=== PATIENT | female | born 2000 | race Caucasian/White ===

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

== ENCOUNTER 2021-01-18 21:57 | Emergency (ER) | payer OTHER ==
[~2021-01-18] VITALS: Ht 165.1 cm; Wt 100.0 kg
[~2021-01-18 21:57] MED LIST changes: +ONDA4TAB6 PO
--- OUTSIDE RECORDS SUMMARY | 2021-01-18 23:27 | CCD ---
Author Author [facility] Organization [facility] Address Unknown Phone Unavailable Care Team Providers Care Assistant Printer Floor Covering Name Role Phone Juanita ESPITIA NP Unavailable Unavailable LAROCKJuanita NP Unavailable Unavailable LAROCKJaunita NP Unavailable Unavailable LAROCKJuanita NP Unavailable Unavailable [...] LAROCKJuanita NP Unavailable Unavailable LAROCK, J ANEESH HEATING UNIT MECHANIC Unavailable Unavailable LAROCK, J ANEESH HEATING UNIT MECHANIC Unavailable Unavailable Dille, E Ginny DDS Unavailable Unavailable Dille, E Ginny DDS Unavailable Unavailable Dille, E Ginny DDS Unavailable Unavailable Dille, E Ginny DDS Unavailable Unavailable De Los Santos, L Alysia HEATING UNIT MECHANIC Unavailable Unavailable De Los Santos, L Alysia HEATING UNIT MECHANIC Unavailable Unavailable De Los Santos, L Alysia HEATING UNIT MECHANIC Unavailable Unavailable De Los Santos, L Alysia HEATING UNIT MECHANIC Unavailable Unavailable De Los Santos, L Alysia HEATING UNIT MECHANIC Unavailable Unavailable De Los Santos, L Alysia HEATING UNIT MECHANIC Unavailable Unavailable De Los Santos, L Alysia HEATING UNIT MECHANIC Unavailable Unavailable De Los Santos, L Alysia HEATING UNIT MECHANIC Unavailable Unavailable De Los Santos, L Alysia HEATING UNIT MECHANIC Unavailable Unavailable De Los Santos, L Alysia HEATING UNIT MECHANIC Unavailable Unavailable De Los Santos, L Alysia HEATING UNIT MECHANIC Unavailable Unavailable De Los Santos, L Alysia HEATING UNIT MECHANIC Unavailable Unavailable De Los Santos, L Alysia HEATING UNIT MECHANIC Unavailable Unavailable De Los Santos, L Alysia HEATING UNIT MECHANIC Unavailable Unavailable De Los Santos, L Alysia HEATING UNIT MECHANIC Unavailable Unavailable De Los Santos, L Alysia HEATING UNIT MECHANIC Unavailable Unavailable De Los Santos, L Alysia HEATING UNIT MECHANIC Unavailable Unavailable De Los Santos, L Alysia HEATING UNIT MECHANIC Unavailable Unavailable De Los Santos, L Alsyia HEATING UNIT MECHANIC Unavailable Unavailable De Los Santos, L Alysia HEATING UNIT MECHANIC Unavailable Unavailable De Los Santos, L Alysia HEATING UNIT MECHANIC Unavailable Unavailable De Los Santos, L Alysia HEATING UNIT MECHANIC Unavailable Unavailable De Los Santos, L Alysia HEATING UNIT MECHANIC Unavailable Unavailable De Los Santos, L Alysia HEATING UNIT MECHANIC Unavailable Unavailable De Los Santos, L Alysia HEATING UNIT MECHANIC Unavailable Unavailable De Los Santos, L Alysia HEATING UNIT MECHANIC Unavailable Unavailable De Los Santos, L Alysia HEATING UNIT MECHANIC Unavailable Unavailable De Los Santos, L Alysia HEATING UNIT MECHANIC Unavailable Unavailable De Los Santos, L Alysia HEATING UNIT MECHANIC Unavailable Unavailable De Los Santos, L Alysia HEATING UNIT MECHANIC Unavailable Unavailable De Los Santos, L Alysia HEATING UNIT MECHANIC Unavailable Unavailable De Los Santos, L Alysia HEATING UNIT MECHANIC Unavailable Unavailable De Los Santos, L Alysia HEATING UNIT MECHANIC Unavailable Unavailable De Los Santos, L Alysia HEATING UNIT MECHANIC Unavailable Unavailable De Los Santos, L Alysia HEATING UNIT MECHANIC Unavailable Unavailable De Los Santos, L Alysia HEATING UNIT MECHANIC Unavailable Unavailable De Los Santos, L Alysia HEATING UNIT MECHANIC Unavailable Unavailable De Los Santos, L Alysia HEATING UNIT MECHANIC Unavailable Unavailable De Los Santos, L Alysia HEATING UNIT MECHANIC Unavailable Unavailable De Los Santos, L Alysia HEATING UNIT MECHANIC Unavailable Unavailable De Los Santos, L Alysia HEATING UNIT MECHANIC Unavailable Unavailable De Los Santos, L Alysia HEATING UNIT MECHANIC Unavailable Unavailable Kwaku, A Caryn HEATING UNIT MECHANIC Unavailable Unavailable Kwaku, A Caryn HEATING UNIT MECHANIC Unavailable Unavailable Kwaku, A Caryn HEATING UNIT MECHANIC Unavailable Unavailable Kwaku, A Caryn HEATING UNIT MECHANIC Unavailable Unavailable Kwaku, A Caryn HEATING UNIT MECHANIC Unavailable Unavailable Kwaku, A Caryn HEATING UNIT MECHANIC Unavailable Unavailable Kwaku, A Caryn HEATING UNIT MECHANIC Unavailable Unavailable Kwaku, A Caryn HEATING UNIT MECHANIC Unavailable Unavailable Kwaku, A Caryn HEATING UNIT MECHANIC Unavailable Unavailable Kwaku, A Caryn HEATING UNIT MECHANIC Unavailable Unavailable Kwaku, A Caryn HEATING UNIT MECHANIC Unavailable Unavailable Kwaku, A Caryn HEATING UNIT MECHANIC Unavailable Unavailable Kwaku, A Caryn HEATING UNIT MECHANIC Unavailable Unavailable Kwaku, A Caryn HEATING UNIT MECHANIC Unavailable Unavailable Kwaku, A Carny HEATING UNIT MECHANIC Unavailable Unavailable Kwaku, A Caryn HEATING UNIT MECHANIC Unavailable Unavailable Kwaku, A Caryn HEATING UNIT MECHANIC Unavailable Unavailable Kwaku, A Caryn HEATING UNIT MECHANIC Unavailable Unavailable Kwaku, A Caryn HEATING UNIT MECHANIC Unavailable Unavailable Kwaku, A Caryn HEATING UNIT MECHANIC Unavailable Unavailable Kwaku, A Caryn HEATING UNIT MECHANIC Unavailable Unavailable Kwaku, A Caryn HEATING UNIT MECHANIC Unavailable Unavailable Kwaku, A Caryn HEATING UNIT MECHANIC Unavailable Unavailable Kwaku, A Caryn HEATING UNIT MECHANIC Unavailable Unavailable Kwaku, A Caryn HEATING UNIT MECHANIC Unavailable Unavailable Kwaku, A Caryn HEATING UNIT MECHANIC Unavailable Unavailable Kwaku, A Caryn HEATING UNIT MECHANIC Unavailable Unavailable Kwaku, A Caryn HEATING UNIT MECHANIC Unavailable Unavailable Kwaku, A Caryn HEATING UNIT MECHANIC Unavailable Unavailable Kwaku, A Caryn HEATING UNIT MECHANIC Unavailable Unavailable Kwaku, A Caryn HEATING UNIT MECHANIC Unavailable Unavailable Kwaku, A Caryn HEATING UNIT MECHANIC Unavailable Unavailable Kwaku, A Caryn HEATING UNIT MECHANIC Unavailable Unavailable Kwaku, A Caryn HEATING UNIT MECHANIC Unavailable Unavailable Kwaku, A Caryn HEATING UNIT MECHANIC Unavailable Unavailable Kwaku, A Caryn HEATING UNIT MECHANIC Unavailable Unavailable Wkaku, A Caryn HEATING UNIT MECHANIC Unavailable Unavailable Kwaku, A Caryn HEATING UNIT MECHANIC Unavailable Unavailable Kwaku, A Caryn HEATING UNIT MECHANIC Unavailable Unavailable Kwaku, A Caryn HEATING UNIT MECHANIC Unavailable Unavailable Kwaku, A Caryn HEATING UNIT MECHANIC Unavailable Unavailable Kwaku, A Caryn HEATING UNIT MECHANIC Unavailable Unavailable Kwaku, A Caryn HEATING UNIT MECHANIC Unavailable Unavailable Kwaku, A Caryn HEATING UNIT MECHANIC Unavailable Unavailable Kwaku, A Caryn HEATING UNIT MECHANIC Unavailable Unavailable Kwaku, A Caryn HEATING UNIT MECHANIC Unavailable Unavailable Kwaku, A Caryn HEATING UNIT MECHANIC Unavailable Unavailable Kwaku, A Caryn HEATING UNIT MECHANIC Unavailable Unavailable Kwaku, A Caryn HEATING UNIT MECHANIC Unavailable Unavailable Madeleine Ferris MD Unavailable Unavailable [...] is protected by Article 27-F of the [facility] Public Health law. If you continue you may have access to information: Regarding HIV / AIDS; Provided by facilities licensed or operated by the [facility] Office of Mental Health; or Provided by the [facility] Office for People With Developmental Disabilities. If such information is present, then the following [facility] mandated warning applies: This information has [...] law may result in a fine or fci sentence or both. A general authorization for the release of medical or other information is NOT sufficient authorization for further disc losure. Family History Family Member Name Family Member Gender Family Member Status Date o f Status Description Data Source(s) Unknown Condition [facility] Unknown [facility] Unknown Condition [facility] Unknown Condition [facility] Unknown Condition [facility] Unknown [facility] Unknown [facility] Unknown Condition [facility] Condition [facility] Unknown Condition [facility] Unknown Condition [facility] Unknown Condition [facility] Unknown Condition [facility] Unknown Condition [facility] Unknown Condition [facility] Unknown Condition [facility] Unknown Condition [facility] Unknown Condition [facility] Unknown Condition [facility] Unknown Condition [facility] Unknown Condition [facility] Unknown Condition [facility] Unknown Condition [facility] Unknown Condition [facility] Unknown Condition [facility] Unknown Condition [facility] Unknown Condition [facility] Unknown Condition [facility] Unknown Condition [facility] Unknown Condition [facility] Unknown Condition [facility] Unknown Condition [facility] Unknown Condition [facility] Unknown Condition [facility] Unknown Condition [facility] Unknown Condition [facility] Unknown Condition [facility] Unknown Condition [facility] Unknown Condition [facility] Unknown Condition [facility] Unknown Condition [facility] Unknown Condition [facility] Unknown Condition [facility] Unknown Condition [facility] Unknown Condition [facility] Unknown Condition [facility] Unknown Condition [facility] Unknown Condition [facility] Unknown Condition [facility] Unknown Condition [facility] Unknown Condition [facility] Unknown Condition [facility] Unknown Condition [facility] Condition [facility] Unknown Condition [facility] Unknown Condition [facility] Unknown Condition [facility] Unknown Condition [facility] Unknown Condition [facility] Unknown Condition [facility] Unknown Condition [facility] Unknown Condition [facility] Unknown Condition [facility] Unknown Condition [facility] Unknown Condition [facility] Unknown Condition [facility] Unknown Condition [facility] Unknown Condition [facility] Encounters Encounter Providers Location Date Indications Data Source(s ) Outpatient Attender: Caryn Ames NPReferrer: Caryn helton HEATING UNIT MECHANIC 10/24/2020 09:11:00 AM EDT - 10/24/2020 09:53:00 AM EDT [facility] Outpatient 06/17/2020 12:30:48 PM EDT [facility] ([facility] Outpatient Attender: Caryn Ames NPReferrer: Caryn helton HEATING UNIT MECHANIC 04/30/2020 11:33:00 AM EDT - 04/30/2020 11:50:00 AM EDT [facility] Outpatient Attender: Caryn Ames HEATING UNIT MECHANIC 04/11/2020 04:06:00 PM EST R39.9 [facility] R39.9 Outpatient Attender: Caryn Ames NPReferrer: Caryn helton HEATING UNIT MECHANIC 04/11/2020 02:16:[facility]: Danyelle Ferris MD 03/15/2020 04:52:00 PM EST N91.2 [facility] N91.2 Outpatient Attender: ANEESH ESPITIA NP 02/16 12:56:39 PM EST - 03/11/2020 01:57:34 PM EST [facility] ([facility] ) Outpatient Attender: Caryn Ames HEATING UNIT MECHANIC 01/18/2020 11:26:00 AM EST PAIN [facility] PAIN Outpatient Attender: Caryn Ames NPReferrer: Caryn helton HEATING UNIT MECHANIC 01/18/2020 11:03:00 AM EST - 01/18/2020 11:19:00 AM EST [facility] Outpatient Attender: Caryn Ames NPReferrer: Caryn helton HEATING UNIT MECHANIC 12/07/2019 03:25:00 PM EDT - 12/07/2019 03:45:00 PM EDT [facility] Outpatient Attender: Ginny Villa DDS [facility] 11/24/2019 12:23:00 P M EDT [facility] Outpatient Attender: Ginny Villa DDS [facility] 11/22/2019 02:22:01 P M EDT [facility] Outpatient Attender: Ginny Villa DDS [facility] 11/22/2019 02:22:00 P M EDT [facility] Outpatient Attender: Ginny Villa DDS [facility] 11/22/2019 09:07:01 A EDT [facility] Outpatient Attender: Ginny Villa DDS [facility] 11/22/2019 09:05:01 A EDT [facility] Outpatient Attender: Ginny Villa DDS [facility] 11/22/2019 09[facility]02:[facility] Outpatient Attender: Ginny Villa DDS [facility] 11/22/2019 09:00:01 A EDT [facility] Outpatient Attender: Ginny Villa DDS [facility] 11/22/2019 08:59:01 A EDT [facility] Outpatient Attender: Ginny Villa DDS [facility] 11/22/2019 08:56:01 [facility] Outpatient Attender: Ginny Villa DDS [facility] 11/22/2019 08:32:01 A [facility] Outpatient Attender: Alysia De Los Santos HEATING UNIT MECHANIC 11/21/2019 1 2:25:00 PM EDT ABD PAIN, R10.9 [facility] ABD PAIN, R10.9 Outpatient Attender: Alysia De Los Santos NPReferrer: Caryn boyd HEATING UNIT MECHANIC 11/21/2019 11:50:00 AM EDT - 11/21/2019 12:21:00 PM EDT [facility] Immunizations Vaccine Date Status Description Data Source(s) COVID-19 VACCINE [facility] 08/05/2020 12:00:00 AM EDT completed [facility] Vaccine Series Complete: YESThis Data wa s Submitted to [facility] Via [email or web address]. COVID-19 VACCINE Pfizer 07/15/2020 12:00:00 AM EDT completed [facility] Vaccine Series Complete: NOThis Data was Submitted to [facility] Via [email or web address]. Medications Medication Brand Name Start Date Product Form Dose Route Admi nistrative Instructions Pharmacy Instructions Status Indications Reaction Description Data Source(s) Ondansetron 4 MG Disintegrating Oral Tablet ONDANSETRON 12/30/2020 12:00:00 AM EST tablet,disintegrating 8 DISSOLVE 1 TABLET UNDER THE TONGUE EVERY 6 TO 8 HOURS NEEDED FOR NAUSEA / VOMITING DISSOLVE 1 TABLET UNDER THE TONGUE EVERY 6 TO 8 HOURS NEEDED FOR NAUSEA / VOMITING SOLD: 12/31/2020 [facility] 20 mg 05/04/2020 12:00:00 AM EDT capsule,delayed release (DR/EC) 30 TAKE ONE CAPSULE BY MOUTH EVERY DAY TAKE ONE CAPSULE BY MOUTH EVERY DAY SOLD: 05/06/2020 [facility] Loryna 28 Day Pack 3-0.02 mg ETHINYL ESTRADIOL/DROSPIRENONE 05/02/2020 12:00:00 AM EDT tablet 28 TAKE ONE TABLET BY MOUTH BILLY RY DAY TAKE ONE TABLET BY MOUTH EVERY DAY SOLD: 05/06/2020 [facility] Omeprazole 20 MG Delayed Release Oral Capsule Omeprazole 04/30/2020 11:44:44 AM EDT [address] [facility] Drospirenone-Ethinyl Estradiol 04/30/2020 11:36:40 AM EDT 1 TAB active [facility] NITROFURANTOIN, MACROCRYSTALS 100 MG Oral Capsule Nitr ofurantoin [place] Nitrofurantoin [place] 04/12/2020 09:20:00 AM EST 100 MG completed [facility] 100 mg 04/12/2020 12:00:00 AM EST capsule 14 TAKE ONE CAPSULE BY MOUTH TWICE A DAY WITH FOOD FOR 7 DAYS TAKE ONE CAPSULE BY MOUTH TWICE A DAY WI TH FOOD FOR 7 DAYS SOLD: 04/12/2020 [facility] Omeprazole 20 MG Delayed Release Oral Capsule Omeprazole 04/11/2020 03:00:08 PM EST 20 MG completed [facility] Drospirenone-Ethinyl Estradiol 04/11/2020 02:56:08 PM EST 1 TAB completed [facility] Loryna 28 Day Pack 3-0.02 mg ETHINYL ESTRADIOL/DROSPIRENONE 04/11/2020 12:00:00 AM EST tablet 28 TAKE ONE TABLET BY MOUTH BILLY RY DAY TAKE ONE TABLET BY MOUTH EVERY DAY SOLD: 04/11/2020 [facility] 20 mg 04/11/2020 12:00:00 AM EST capsule,delayed release (DR/EC) 30 TAKE ONE CAPSULE BY MOUTH EVERY DAY TAKE ONE CAPSULE BY MOUTH EVERY DAY SOLD: 04/11/2020 [facility] Drospirenone-Ethinyl Estradiol 08/23/2019 09:19:42 AM EDT completed [facility] Insurance Providers Payer name Policy type / Coverage type Policy ID Covered republican ID Covered republican's relationship to stevenson Policy Stevenson Plan Information COMMERCIAL GENERIC U [id number] Child [id number] MEDICAID M [id number] Self [id number] Managed Care - MVP P [id number] S [id number] MVP H [id number] Self [id number] MVP H [id number] Self [id number] 100 MVP I [id number] Self [id number] MVP I [id number] Self [id number] 100 Medicaid Dental S [id number] S [id number] Managed Care - MVP P [id number] S [id number] MVP Health Care Commercial Insurance Co. [id number] Self [id number] RPR- Needs Payer Match [id number] Self [id number] MVP HEALTH CARE O [id number] C [id number] MVP HEALTH CARE O UNAVAILABLE [id number] S UN AVAILABLE Managed Care - MVP S [id number] S [id number] MVP [id number] SP [id number] Medicaid of [place] Other 0 [id number] Self 0 MEDICAID -PHYSICIAN [id number] [facility] [id number] MEDICAID -O/P EMERGENCY ROOM [id number] UNHC AMERICHOICE XIX -HMO [id number] 18 [id number] [place] of [place] Other 0 [id number] Self 0 [facility] Other 0 [id number] F amily Dependent Augustin Tejeda 0 [place] Other 0 [id number] Self 0 [facility] Other 0 [id number] F amily Dependent Augustin Tejeda 0 [employer] [place] Other 0 [id number] Self 0 [facility] Other 0 [id number] F amily Dependent Augustin Tejeda 0 [employer] [place] Other 0 [id number] Self 0 [facility] Other 0 [id number] F amily Dependent Augustin Tejeda 0 [employer] [place] Other 0 [id number] Self 0 [facility] Other 0 [id number] F amily Dependent Augustin Tejeda 0 [place] Other 0 [id number] Self 0 [facility] Other 0 [id number] F amily Dependent Augustin Tejeda 0 [place] Other 0 [id number] Self 0 [facility] Other 0 [id number] F amily Dependent Augustin Tejeda 0 [place] Other 0 [id number] Self 0 [facility] Other 0 [id number] F amily Dependent Augustin Tejeda 0 [place] Other 0 [id number] Self 0 [facility] Other 0 [id number] F amily Dependent Augustin Tejeda 0 [employer] [place] Other 0 [id number] Self 0 [facility] Other 0 [id number] F amily Dependent Augustin Tejeda 0 [facility] Other 0 [id number] Self 0 [facility] Other 0 [id number] Self 0 [facility] Other 0 [id number] Self 0 [facility] Other 0 [id number] Self 0 [facility] Other 0 [id number] Self 0 [facility] Other 0 [id number] Self 0 [facility] Other 0 [id number] Self 0 [facility] Other 0 [id number] Self 0 [facility] Other 0 [id number] Self 0 [facility] Other 0 [id number] Self 0 [facility] Other 0 [id number] Self 0 [facility] Other 0 [id number] Self 0 [facility] Other 0 [id number] Self 0 [facility] Other 0 [id number] Self 0 [facility] Other 0 [id number] Self 0 MEDICAID [id number] SP [id number] [facility] P [id number] S [id number] BLUE CROSS BLUE SHIELD-PHYSICIAN [id number] BLUE [employer]OSS BLUE SHIELD-O/P [id number] 18 [id number] [facility]OSS BLUE SHIELD-CLINIC [id number] 18 [id number] [facility] [id number] SP [id number] MEDICAID - CLINIC [id number] [facility] 123 SP [id number] [facility] COMM[facility] [id number] SP [id number] [facility] HEALTH CARE O [id number] S [id number] D Managed Care [facility] O [id number] S [id number] Medicaid O [id number] S [id number] Managed Care [facility] O [id number] S [id number] Medicaid Dental S [id number] S [id number] MEDICAID GME [id number] S [id number] [facility] HEALTH CARE HEA [id number] S [id number] [facility] HEALTH CARE HEA [id number] S [id number] Problems, Conditions, and Diagnoses Code Display Name Description Problem Type Effective Dates Data Source(s) 520.6 [place] teeth impaction [place] teeth impaction 11/22/2019 02:21:45 PM EDT [facility] Surgeries/Procedures Procedure Description Date Indications Data Source(s) Urine culture (procedure) 04/11/2020 12:00:00 AM [facility] X-ray of left knee (procedure) 01/18/2020 12:06:00 PM [facility] Radiography of dnyrlu-lixuzk-yelfycz (procedure) 11/20 12:45:00 PM EDT [facility] Radiography of lqilho-uxexty-xauhplq (procedure) [facility] avrjnq-gtbhtc-mglpgtu (procedure) 11/20 12:45:00 PM T [facility] Results ID Date Data Source [id number] 11/02/2020 02:32:00 PM EDT [facility] Name Value Range Interpretation Code Description Data Thu rce(s) Supporting Document(s) SARS COVID ANTIGEN NEGATIVE [facility] This lab was ordered by BRISA moran nd reported by [facility]. ID Date Data Source [id number] 10/24/2020 09:23:00 AM EDT [facility] Patient Name: CELY PINEDO : 2000 Sex: F Pt Unit #: [id number] Location:[facility] Provider: Visit Date/Time: 10/24/20 Primary Insurance: MVP UMER Secondary Insurance: Self Pay Intake Vital Signs 10/24/20 09:26 Current Height 5 ft 6 in Current Weight 226 lb Weight Measurement Method Standing Scale BMI 36.4 BP 112/78 Blood Pressure Location Lt brachial Position Sitting Respiration 20 Pulse 83 Pulse Source Pulse Oximeter Temp 98.3 F Temp Source Oral Pulse Oximetry (%) 98 Intake Visit Reasons: Suture removal Nurse Note: F/U [facility] ER visit- Pt pushed on glass at [...] like a flu vaccine today as well. PENDING SALE TO [facility] Medical History (Updated 10/24/20 @ 09:45 by Caryn Ames NP) Abdomi nal pain Abdominal pain Asthma Afluria Qd 2020-(3yr up)() Performing Provider: Caryn Ames NP Administered by: [...] lateral wrist. No concerns. Immunizations Afluria Qd 2020-(3yr up)(PF) Performing Provider: Caryn Ames NP Administered by: Yodit Espino on 10/24/20 09:49 Dose Route Admin Location Lot Number Expiration Date [facility] Manufactu rer 0.5 mL IM Left deltoid [id number] 08/14/21 03502-711-16 [employer] VIS Given Date VIS Provided VIS Publication Date 10/24/20 Single Vaccine 20 Eligibility Eligibility Date Funding Source Not [facility] Eligible 10/24/20 Private Assessment Plan Assessment Plan [...] for immunization Coding Level of Care Code 97202 Est Pt Intermediate Comp Exam Prob mojgan Focused Diagnoses Laceration Additional Codes Intake - Is patient in pain?: No (1126F) <Electronically signed by Caryn Ames HEATING UNIT MECHANIC> 10/24/20 0954 Name Value Range Interpretation Code Description Data Thu rce(s) Supporting Document(s) ID Date Data Source [id number] 05/18/2020 12:00:00 AM EDT [facility] Name Value Range Interpretation Code Description Data Thu rce(s) Supporting Document(s) SARS coronavirus 2 RNA Not Detected [facility] This lab was ordered by [employer] and rep orted by [employer]. ID Date Data Source [id number] 04/30/2020 11:33:00 AM EDT [facility] Patient Name: CELY PINEDO : 2000 Sex: F Pt Unit #: [id number] Location:[facility]. Provider: Visit Date/Time: 04/30/20 Primary Insurance: MVP [facility] Secondary Insurance: Self Pay Intake Vital [...] to talk about weight loss as well. PENDING SALE TO [facility] Medical History (Updated 04/30/20 @ 11:50 by [...] R10.9 - Unspecified abdominal pain SNOMED Code(s): 08452477 Category: Medical Plan - Caryn Ames NP: Resolved with the omeprazole. No further complaints. (2) Weight loss counseling, encounter for: Status: Acute Code(s): Z71.3 - Dietary counseling and surveillance SNOMED Code(s): 160445789 Category: Medical Plan - Caryn Ames NP: [...] caps 6RF Coding Level of Care Code 32138 Est Pt Limited Comp Exam Problem Focused Diagnoses Abdominal pain R10.9 Weight loss counseling, encounter for Z71.3 <Electronically signed by Caryn Ames HEATING UNIT MECHANIC> 04/30/20 1153 Name Value Range Interpretation Code Description Data Thu rce(s) Supporting Document(s) ID Date Data Source [id number] 04/11/2020 02:35:00 PM [facility] Patient Name: CELY PINEDO : 2000 Sex: F Pt Unit #: [id number] Location:[facility] Provider: Visit Date/Time: 04/11/20 Primary Insurance: [place] [...] joints: bilaterally Results Urinalysis (DipStick) Urine Specific Glidden 1.025 Last Edit by Cornelia Chavira on [...] R10.9 - Unspecified abdominal pain SNOMED Code(s): 96206307 Category: Medical Plan - Caryn Ames NP: Start on omeprazole. Ordered upper GI series. Consider endoscopy vs GI referral. Consider elmination diet. (2) Low back pain: Status: Acute Code(s): M54.5 - Low back pain SNOMED Code(s): 696050272 Category: Medical Plan - Caryn Ames NP: [...] Week R10.13 Coding Level of Care Code 56357 Est Pt Limited Comp Exam Problem Focused Diagnoses Abdominal pain R10.9 Low back pain M54.5 <Electronically signed by Caryn Ames HEATING UNIT MECHANIC> 04/11/20 1506 Name Value Range Interpretation Code Description Data Thu rce(s) Supporting Document(s) ID Date Data Source [id number] 03/15/2020 05:49:00 PM [facility] Name Value Range Interpretation Code Description Data Thu rce(s) Supporting Document(s) Choriogonadotropin.beta subunit [Units/volume] in Serum or P lasma Less Than 1 0-10 N [facility] @Report as less than lower limitAPPROXIM ATE GESTATION AGE APRROXIMATE HCG RANGE 0-1 WEEK 0 - 50 1-2 WEEKS 40 - 300 2-3 WEEKS 100 - 1,000 3-4 WEEKS 500 - 6,000 1-2 MONTHS 5,000 - 200,000 2-3 MONTHS 10,000 - 100,000 2ND TRIMESTER 3,000 - 50,000 3RD TRIMESTER 1,000 - 50,000 ID Date Data Source [id number] 01/18/2020 02:05:00 PM [facility] [address] [place] [address] [phone] NAME SEX PT STATUS ACCOUNT NUMBER CELY PINEDO REG REF [id number] ORDERING PHYSICIAN LOCATION MEDICAL RECORD NO. Caryn BOILER INSTALLER [facility] [id number] ATTENDING PHYSICIAN DATE OF DATE OF EXAM/TIME [...] rce(s) Supporting Document(s) ID Date Data Source [id number] 01/18/2020 11:04:00 AM EST [facility] Patient Name: CELY PINEDO : 2000 Sex: F Pt Unit #: [id number] Location:[facility]. Provider: Visit Date/Time: 01/18/20 Primary Insurance: P [facility] Secondary Insurance: Self Pay Intake Vital Signs 01/18/20 11:08 Current Weight 200 lb Weight Measurement Method Standing Scale BP 110/70 Blood Pressure Location Lt brachial Position Sitting Respiration 18 H Pulse 85 Pulse Source Pulse Oximeter Temp 98.2 F Temp Source Oral Pulse Oximetry (%) 98 Intake Visit Reasons: Knee pain Nurse Note: Also has ER papers from [facility] for another matter-(R) flank pain. Which is now resolved. Work Car Operator Required: No Is patient in pain?: Yes (8) Allergies No Known Drug Allergies Allergy (Verified 06/25/18 11:28) Fall Risk Medications:: No High Risk Medications HIV Testing Offer - ages 13- 64 HIV testing Offer: No Coronavirus Screening Screening Have you traveled outside of [facility] or [facility] in the last 14 days.: No Has [...] - Pain in left knee SNOMED Code(s): 60820596 Category: Medical Plan - Caryn Ames HEATING UNIT MECHANIC: Left knee pain; previously was seen for right knee pain. I will order an xray of the left knee for evaluation. Was instructed on PT for right knee, did not complete. Consider PT for restrengthening. Orders: Orders: Xray Knee comp 4 or more LT Today <Electronically signed by Caryn Ames HEATING UNIT MECHANIC> 01/18/20 1128 Name Value Range Interpretation Code Description Data Thu rce(s) Supporting Document(s) ID Date Data Source [id number] 12/07/2019 03:29:00 PM EDT [facility] Patient Name: CELY PINEDO : 2000 Sex: F Pt Unit #: [id number] Location:[facility] Provider: Visit Date/Time: 12/07/19 Primary Insurance: [employer] Secondary Insurance: natue [facility] Intake Vital Signs 3 12/07/19 15:30 [...] Screening Screening Have you traveled outside of [facility] or [facility] in the last 14 days.: No Has [...] and well groomed Nutritional Appearance: well nourished [facility] Head: normocephalic and atraumatic Ears: hearing [...] rce(s) Supporting Document(s) ID Date Data Source [id number] 11/22/2019 12:31:07 PM EDT [facility] Vital SignsBlood Pressure: 127/80 Patient History Medical History:AsthmaFamily History:Social/Personal History: Smoking Status: never smokerCurrent Problems: [place] teeth impaction (ICD-520.6) (ODD74-X34.1)Problem list reviewed during this update.No known problems.Current [...] #16 Chart Notes:nancy (Nov 22 2019 2:17PM): [facility] with NEW patient- updated history. There is a sore on the top of her mouth. Adult prophy- handscaled, pashto- mint prophy paste, floss, 4 BW's, [place]-Patient [...] PM): ; merly (Nov 22 2019 2:21PM): [facility](-). CC: none. Reviewed Xrays. Exam: no caries detected. OCS: WNL, IO/ EO completed, No significant hard findings upon clinical exam.A dditional PPE requirements due to COVID-19 in the dental setting, N95, surgical mask, hair covering, gown and shieldPt was cooperative. OHI given Referral: wisdom teeth. NV:recallRasCristy chambers RDH by merly (11/22/2019 2:21 PM): Tooth Notes and Watches: Assessment & Plan Problems:Added: [place] teeth impaction (ICD-520.6) (GUG81-T36.1)Medications:INHALERBIRTH CONTROLMedication Changes:Added: * CONTROL* INHALERAllergies:No Known Allergies (updated 11/22/2019) Orders:Oral Surgery Referral [[id number]] Name Value Range Interpretation Code Description Data Thu rce(s) Supporting Document(s) ID Date Data Source [id number] 11/21/2019 01:20:00 PM EDT [facility] [address] [place] [address] [phone] NAME SEX PT STATUS ACCOUNT NUMBER CELY PINEDO REG REF [id number] ORDERING PHYSICIAN LOCATION MEDICAL RECORD NO. Alysia BOILER INSTALLER [facility] [id number] ATTENDING PHYSICIAN DATE OF DATE OF EXAM/TIME [...] Trans Dt/Tm: Trans by: DT Prt Dt/Tm: [phone]: Total DLP = 0.00 mGy-cm Fluoroscopy Time (in secs): Name Value Range Interpretation Code Description Data Thu rce(s) Supporting Document(s) ID Date Data Source [id number] 11/21/2019 12:45:00 PM EDT [facility] Name Value Range Interpretation Code Description Data Thu rce(s) Supporting Document(s) Leukocytes [#/volume] in Blood by Automated count 8.0 10*3/uL 4.45-10 .71 N [facility] Erythrocytes [#/volume] in Blood by Automated count 4.73 10*6/uL 4.20 -5.40 N [facility] Hemoglobin [Moles/volume] in Blood 13.2 g/dL 10.7-15.4 N [facility] Hematocrit [Volume Fraction] of Blood by Automated count 40.9 % 3 7-47 N [facility] Erythrocyte mean corpuscular volume [Ent itic volume] in Cord blood by Automated count 86.5 fL 80-96 N [facility] Erythrocyte mean corpuscular hemoglobin [Entitic mass] by Automated count 27.9 pg 27-31 N [facility] Erythrocyte mean corpuscular hemoglobin concentration [Mass/volume] in Cord blood 32.3 g/dL 33-37 Below low normal [facility] Erythrocyte distribution width [Entitic volume] by Automated count 12 % 11-15 N [facility] Platelets [#/volume] in Blood by Automated count 302 10*3/uL 130-472 N [facility] Platelet mean volume [Entitic volume] in Blood 10.8 fL 9.1-13.1 N [facility] Neutrophils/100 leukocytes in Blood by Automated count 57.1 % 41- 77 N [facility] Neutrophils [#/volume] in Blood by Automated count 4.6 U 1.7-7.6 N [facility] Lymphocytes/100 leukocytes in Blood by Automated count 28.1 % 14- 46 N [facility] Lymphocytes [#/volume] in Blood by Automated count 2.3 U 0.6-4.6 N [facility] Monocytes/100 leukocytes in Blood by Automated count 10.1 % 4-12 N [facility] Monocytes [#/volume] in Blood by Automated count 0.8 U 0.2-1.2 N [facility] Eosinophils/100 leukocytes in Blood by Automated count 3.4 % 0-7 N [facility] Eosinophils [#/volume] in Blood by Automated count 0.3 U 0.0-0.5 N [facility] Basophils/100 leukocytes in Blood by Automated count 0.9 % 0.4-1 .3 N [facility] Basophils [#/volume] in Blood by Automated count 0.1 U 0.0-0.2 N [facility] NUCLEATED RED BLOOD CELL 0 % [facility] NUCLEATED RED BLOOD CELL# 0 U [facility] Immature granulocytes [Presence] in Blood by Automated count 0-2 N [facility] Immature granulocytes [#/volume] in Blood by Automated count 0.0 U 0-0.1 N [facility] Manual Differential panel - Blood NO [facility] ID Date Data Source [id number] 11/21/2019 01:11:00 PM EDT [facility] Name Value Range Interpretation Code Description Data Thu rce(s) Supporting Document(s) Urea nitrogen [Mass/volume] in Serum or Plasma 11 mg/dL 9-23 N [facility] Sodium [Moles/volume] in Serum or Plasma 144 mmol/L 132-146 [facility] Potassium [Moles/volume] in Serum or Plasma 4.5 mmol/L 3.5-5.5 [facility] Chloride [Moles/volume] in Serum or Plasma 111 mmol/L 99-109 Above high normal [facility] Carbon dioxide, total [Moles/volume] in Serum or Plasma 27 mmol/L 20 -31 N [facility] Anion gap in Serum or Plasma 11 mmol/L 8-16 N [facility] Glucose [Mass/volume] in Serum or Plasma 87 mg/dL 74-106 N [facility] Creatinine 0.8 mg/dL 0.5-1.1 [facility] Alanine aminotransferase [Enzymatic acti vity/volume] in Serum or Plasma by With P-5'-P 35 U/L 10-49 N [facility] ital Aspartate aminotransferase [Enzymatic ac tivity/volume] in Serum or Plasma by With P-5'-P 15 U/L 0-33 N [facility] pital Alkaline phosphatase [Enzymatic activity/volume] in Serum or Plasma 72 U/L 50-560 N [facility] Calcium [Mass/volume] in Serum or Plasma 9.1 mg/dL 8.5-10.1 [facility] Bilirubin.total [Mass/volume] in Serum or Plasma 0.2 mg/dL 0.3-1.2 Below low normal [facility] Albumin [Mass/volume] in Serum or Plasma by Bromocresol purple (BCP) dye binding method 3.6 g/dL 3.2-4.8 N [facility] ital Protein [Mass/volume] in Serum or Plasma 7.6 g/dL 5.7-8.2 N [facility] ID Date Data Source [id number] 11/21/2019 01:11:00 PM [facility] Name Value Range Interpretation Code Description Data Thu rce(s) Supporting Document(s) Amylase [Enzymatic activity/volume] in Serum or Plasma 53 U/L 30- 118 N [facility] ID Date Data Source [id number] 11/21/2019 01:11:00 PM [facility] Name Value Range Interpretation Code Description Data Thu rce(s) Supporting Document(s) Lipase [Enzymatic activity/volume] in Serum or Plasma 173 U/L 73-3 93 N [facility] ID Date Data Source [id number] 11/21/2019 11:53:00 AM [facility] Patient Name: CELY PINEDO : 2000 Sex: F Pt Unit #: [id number] Location:AMB.EXT Provider: Visit Date/Time: 11/21/19 Primary Insurance: [facility] Secondary Insurance: Self Pay Intake Vital [...] for the pain. It has not helped. 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
[2021-01-18 23:32] LABS: BASO # 0.1 10^3/uL (0.0-0.2); BASO % 0.9 % (0.0-1.0); EOS # 0.2 10^3/uL (0.0-0.5); EOS % 1.9 % (0.0-3.0); HEMATOCRIT 41.2 % (36.0-47.0); HEMOGLOBIN 13.9 g/dl (12.0-15.5); LYMPH # 3.1 10^3/uL (1.5-5.0); LYMPH % 39.4 % (24.0-44.0); MEAN CORPUSCULAR HEMOGLOBIN 29.6 pg (27.0-33.0); MEAN CORPUSCULAR HGB CONC 33.7 g/dl (32.0-36.5); MEAN CORPUSCULAR VOLUME 87.8 fl (80.0-96.0); MONO # 0.9 10^3/uL (0.0-0.8); MONO % 11.2 % (2.0-8.0); NEUTROPHILS # 3.7 10^3/uL (1.5-8.5); NEUTROPHILS % 46.3 % (36.0-66.0); PLATELET COUNT, AUTOMATED 299 10^3/uL (150-450); RED BLOOD COUNT 4.69 10^6/uL (4.00-5.40); WHITE BLOOD COUNT 7.9 10^3/uL (4.0-10.0)
[2021-01-19 00:04] LABS: ALBUMIN 3.6 GM/DL (3.2-5.2); ALT/SGPT 35 U/L (12-78); BILIRUBIN,DIRECT 0.2 MG/DL (0.0-0.2); BILIRUBIN,TOTAL 0.4 MG/DL (0.2-1.0); BLOOD UREA NITROGEN 20 MG/DL (7-18); CALCIUM LEVEL 8.6 MG/DL (8.5-10.1); CARBON DIOXIDE LEVEL 24 MEQ/L (21-32); CHLORIDE LEVEL 109 MEQ/L (98-107); CREATININE FOR GFR 0.68 MG/DL (0.55-1.30); GLUCOSE, FASTING 83 MG/DL (70-100); LIPASE 94 U/L (73-393); POTASSIUM SERUM 4.2 MEQ/L (3.5-5.1); SODIUM LEVEL 140 MEQ/L (136-145); TOTAL PROTEIN 7.2 GM/DL (6.4-8.2)
[2021-01-19] MEDS ORDERED: ONDA4TAB6 PO (00:15)
[2021-01-19 00:26] VITALS: BP 139/75
== END 2021-01-19 00:41 | disposition home or self-care (01) ==
LOC: M ED 21:57
DX: K80.51 Calculus of bile duct without cholangitis or cholecystitis with obstruction (principal); K80.80 Other cholelithiasis without obstruction

== ENCOUNTER → 2021-03-27 | Outpatient (REF) | payer OTHER ==
[2021-03-27 17:06] LABS: BASO # 0.1 10^3/uL (0.0-0.2); BASO % 0.6 % (0.0-1.0); EOS # 0.1 10^3/uL (0.0-0.5); EOS % 0.7 % (0.0-3.0); HEMATOCRIT 41.8 % (36.0-47.0); HEMOGLOBIN 13.8 g/dl (12.0-15.5); LYMPH % 24.3 % (24.0-44.0); MEAN CORPUSCULAR HEMOGLOBIN 28.9 pg (27.0-33.0); MEAN CORPUSCULAR VOLUME 87.6 fl (80.0-96.0); MONO # 0.7 10^3/uL (0.0-0.8); MONO % 8.8 % (2.0-8.0); NEUTROPHILS # 5.3 10^3/uL (1.5-8.5); NEUTROPHILS % 65.2 % (36.0-66.0); PLATELET COUNT, AUTOMATED 269 10^3/uL (150-450); RED BLOOD COUNT 4.77 10^6/uL (4.00-5.40); WHITE BLOOD COUNT 8.2 10^3/uL (4.0-10.0)
[2021-03-27 17:25] LABS: HCG, SERUM QUALITATIVE NEGATIVE (NEGATIVE)
[2021-03-27 17:28] LABS: ALBUMIN 3.7 GM/DL (3.2-5.2); ALT/SGPT 42 U/L (12-78); BILIRUBIN,TOTAL 0.7 MG/DL (0.2-1.0); BLOOD UREA NITROGEN 11 MG/DL (7-18); CARBON DIOXIDE LEVEL 24 MEQ/L (21-32); CHLORIDE LEVEL 107 MEQ/L (98-107); CREATININE FOR GFR 0.61 MG/DL (0.55-1.30); GLUCOSE, FASTING 65 MG/DL (70-100); HCG, SERUM QUANTITATIVE < 1.0 MIU/ML; POTASSIUM SERUM 4.1 MEQ/L (3.5-5.1); SODIUM LEVEL 139 MEQ/L (136-145); TOTAL PROTEIN 7.2 GM/DL (6.4-8.2)
== END ==
LOC: M LAB REF 16:25
PROVIDERS: ATTEND Physician Assistant
DX: R53.83 Other fatigue (principal); Z32.00 Encounter for pregnancy test, result unknown

== ENCOUNTER → 2021-06-18 | Outpatient (REF) | payer OTHER | LOC: M LAB REF 16:47 | PROVIDERS: ATTEND Physician Assistant | DX: J02.9 Acute pharyngitis, unspecified (principal) ==

== ENCOUNTER 2022-05-03 20:41 | Emergency (ER) | payer OTHER ==
[~2022-05-03] VITALS: Ht 167.6 cm; Wt 99.9 kg
[2022-05-03 22:26] LABS: BASO % 0.3 % (0.0-1.0); EOS # 0.1 10^3/uL (0.0-0.5); EOS % 0.4 % (0.0-3.0); HEMATOCRIT 43.8 % (36.0-47.0); HEMOGLOBIN 14.8 g/dl (12.0-15.5); MEAN CORPUSCULAR HEMOGLOBIN 29.8 pg (27.0-33.0); MEAN CORPUSCULAR HGB CONC 33.8 g/dl (32.0-36.5); MEAN CORPUSCULAR VOLUME 88.3 fl (80.0-96.0); MONO % 7.6 % (2.0-8.0); NEUTROPHILS # 10.7 10^3/uL (1.5-8.5); NEUTROPHILS % 83.2 % (36.0-66.0); PLATELET COUNT, AUTOMATED 261 10^3/uL (150-450); RED BLOOD COUNT 4.96 10^6/uL (4.00-5.40); WHITE BLOOD COUNT 12.9 10^3/uL (4.0-10.0)
[2022-05-03] MEDS ORDERED: ONDANSETRON 4MG 2ML VIAL IV ONE (22:35)
[2022-05-03] MEDS ORDERED: KETOROLAC 30 MG/ML 1ML VIAL IV ONE (22:35)
[2022-05-03] MEDS ORDERED: NS 1,000 ML IV ONE (22:40)
[2022-05-03 23:37] LABS: RSV AMPLIFICATION NEGATIVE (NEGATIVE)
[2022-05-03 23:47] LABS: LIPASE 24 U/L (12-53)
[2022-05-03 23:53] LABS: ALBUMIN 3.8 G/DL (3.2-5.2); ALKALINE PHOSPHATASE 67 U/L (46-116); ALT/SGPT 21 U/L (7.0-40); AST/SGOT 20 U/L (<34); BILIRUBIN,DIRECT 0.2 MG/DL (<0.4); BILIRUBIN,TOTAL 0.8 MG/DL (0.3-1.2); BLOOD UREA NITROGEN 17 MG/DL (9-23); CALCIUM LEVEL 7.8 MG/DL (8.5-10.1); CARBON DIOXIDE LEVEL 21 MMOL/L (20-31); CHLORIDE LEVEL 107 MMOL/L (98-107); GLUCOSE, FASTING 88 MG/DL (60-100); POTASSIUM SERUM 3.9 MMOL/L (3.5-5.1); SODIUM LEVEL 138 MMOL/L (136-145); TOTAL PROTEIN 6.7 G/DL (5.7-8.2)
[2022-05-04 00:43] LABS: HCG, SERUM QUALITATIVE NEGATIVE (NEGATIVE)
[2022-05-04 01:23] VITALS: BP 124/71
[2022-05-04 02:07] LABS: GC DNA AMPLIFICATION NEGATIVE (NEGATIVE)
== END 2022-05-04 01:30 | disposition home or self-care (01) ==
LOC: M ED 20:41
DX: R10.9 Unspecified abdominal pain (principal); K80.20 Calculus of gallbladder without cholecystitis without obstruction; N83.202 Unspecified ovarian cyst, left side; R19.7 Diarrhea, unspecified; R42 Dizziness and giddiness
CPT/HCPCS: 36415; 71046; 76705; 76856; 80053; 81001; 82248; 83690; 84703; 85025; 87631; 87661; 87810; 87850; 93005; 93976; 96374; 96375; 99284; J1885; J2405

== ENCOUNTER 2022-06-12 09:17 | Day surgery (SDC) | payer OTHER ==
[~2022-06-12] VITALS: Ht 167.6 cm; Wt 97.9 kg
[~2022-06-12 09:17] MED LIST changes: +AMPICILLIN SOD/SULBACTAM SOD 3 GM in D5W MINI-BAG PLUS 100 ML IV ONE; +CelecoXIB 400 MG CAP PO ONE; +INDOCYANINE GREEN 25MG VIAL (IC-GREEN) IV ONE; +LIDOCAINE 2% 100MG/5ML SDV (FOR ANES.) As Ordered ONE; +MIDAZOLAM INJ 2MG/2ML VIAL As Ordered ONE; +ROCURONIUM BROMIDE 50MG/5ML VIAL As Ordered ONE; +fentaNYL 250 MCG/5 ML INJECTION As Ordered ONE; +propofoL 200 MG/20 ML VIAL As Ordered ONE
[2022-06-12] MEDS ORDERED: LR 1,000 ML IV SCH (09:25)
[2022-06-12] MEDS ORDERED: BUPIVACAINE HCL 0.25% 30ML VIAL As Ordered ONE (11:43)
[2022-06-12] MEDS ORDERED: LIDOCAINE 1% SDV 30ML VIAL As Ordered ONE (11:44)
[2022-06-12] MEDS ORDERED: ACETAMINOPHEN 1000MG 100ML IV BAG As Ordered ONE (12:17)
[2022-06-12] MEDS ORDERED: METOCLOPRAMIDE INJ 10MG/2ML VIAL As Ordered ONE (12:37)
[2022-06-12] MEDS ORDERED: KETOROLAC 60MG 2ML VIAL As Ordered ONE (12:37)
[2022-06-12] MEDS ORDERED: SUGAMMADEX SODIUM 500 MG/5 ML VIAL (BRIDION) As Ordered ONE (12:37)
[2022-06-12] MEDS ORDERED: ONDANSETRON 4MG 2ML VIAL As Ordered ONE (12:37)
[2022-06-12] MEDS ORDERED: DESFLURANE 240 ML INHALANT As Ordered ONE (13:16)
[2022-06-12] MEDS ORDERED: fentaNYL 100 MCG/2 ML INJECTION IV PRN (13:25)
[2022-06-12] MEDS ORDERED: HYDROMORPHONE HCL 0.5 MG/ 0.5 ML SYRINGE IV PRN (13:25)
[2022-06-12] MEDS ORDERED: ONDANSETRON 4MG 2ML VIAL IV PRN (13:25)
[2022-06-12] MEDS ORDERED: oxyCODONE 5MG TAB PO PRN (13:25)
[2022-06-12 14:20] VITALS: BP 121/58
== END 2022-06-12 15:21 | disposition home or self-care (01) ==
LOC: M SDC 09:17
PROVIDERS: ATTEND Surgery
DX: K80.10 Calculus of gallbladder with chronic cholecystitis without obstruction (principal); J45.909 Unspecified asthma, uncomplicated
CPT/HCPCS: 47562; 81025; 88304; J0131; J0295; J1100; J1885; J2250; J2405; J2765; J3010; Q9968; S0020; S2900

== ENCOUNTER → 2023-12-27 | Outpatient (REF) | payer OTHER ==
[~2023-12-27] MED LIST changes: -AMPICILLIN SOD/SULBACTAM SOD 3 GM in D5W MINI-BAG PLUS 100 ML IV ONE; -CelecoXIB 400 MG CAP PO ONE; -INDOCYANINE GREEN 25MG VIAL (IC-GREEN) IV ONE; -LIDOCAINE 2% 100MG/5ML SDV (FOR ANES.) As Ordered ONE; -MIDAZOLAM INJ 2MG/2ML VIAL As Ordered ONE; +ONDA-282 PO; -ONDA4TAB6 PO; -ROCURONIUM BROMIDE 50MG/5ML VIAL As Ordered ONE; -fentaNYL 250 MCG/5 ML INJECTION As Ordered ONE; -propofoL 200 MG/20 ML VIAL As Ordered ONE
[2024-01-06 12:09] LABS: HPV APTIMA NOT DETECTED (NOT DETECT)
== END ==
LOC: M LAB REF 14:07
PROVIDERS: ATTEND Nurse Practitioner Family
DX: Z12.4 Encounter for screening for malignant neoplasm of cervix (principal); R87.615 Unsatisfactory cytologic smear of cervix

== ENCOUNTER → 2024-05-18 | Outpatient (REF) | payer OTHER ==
[2024-05-21 12:41] LABS: HPV APTIMA Not Detected (Not Detected)
== END ==
LOC: M LAB REF 17:54
PROVIDERS: ATTEND Nurse Practitioner Family
DX: Z12.4 Encounter for screening for malignant neoplasm of cervix (principal)

== ENCOUNTER → 2024-08-22 | Outpatient (REF) | LOC: M PLAIMG 14:53 | PROVIDERS: ATTEND Internal Medicine | DX: M54.50 Low back pain, unspecified (principal) ==